=== PATIENT | male | born 1945 | race Caucasian/White ===

== ENCOUNTER → 2017-01-22 | Outpatient (CLI) | payer MEDICARE, OTHER ==
[2017-01-22 08:25] LABS: BASOPHILS % (AUTO) 1 % (0-2); EOSINOPHILS # (AUTO) 0.2 10^3uL; EOSINOPHILS % (AUTO) 3 % (0-4); MEAN CORPUSCULAR HGB CONC 34.6 g/dL (31.0-37.0); MEAN CORPUSCULAR VOLUME 92 FL (80-100); MEAN PLATELET VOLUME 9.4 FL (6.0-9.5); MONOCYTES % (AUTO) 13 % (3-11); NEUTROPHILS # (AUTO) 4.3 X10^3; NEUTROPHILS % (AUTO) 57 % (51-67); PLATELET COUNT 243 10^3uL (150-450); WHITE BLOOD COUNT 7.65 10^3uL (4.0-11.0)
[2017-01-22 08:45] LABS: MEAN CORPUSCULAR HEMOGLOBIN 31.9 PG (26.0-34.0)
[2017-01-22 08:51] LABS: ALBUMIN 3.9 g/dL (3.4-5.0); ANION GAP 15.1 MEQ/L (3-15); CALCULATED IONIZED CALCIUM 4.4 mg/dL (3.8-4.6); TOTAL PROTEIN 6.8 g/dL (6.4-8.5)
[2017-01-22 09:04] LABS: ERYTHROCYTE SEDIMENTATION RT* 7 mm/hr (0-19)
--- NOTE | 2017-01-22 09:14 | Diagnostic Imaging Report ---
INDICATION: Dyspnea. TECHNIQUE: PA and lateral views of the chest were obtained at 0848 hours. COMPARISON: 05/01/2016. FINDINGS: The heart is normal in size. The aorta is tortuous. The lungs are clear except for a calcified granuloma in the right base. There is no pneumothorax or pleural fluid. There is hyperinflation, compatible with COPD. IMPRESSION: COPD changes with hyperinflation. No focal infiltrate or pleural fluid. A calcified granuloma in the right lung base is stable. Dictated by: Dictated on workstation # [id number]
== END ==
LOC: LAB 07:37
PROVIDERS: ATTEND Family Medicine
DX: R06.00 Dyspnea, unspecified (principal); I49.8 Other specified cardiac arrhythmias; R79.89 Other specified abnormal findings of blood chemistry; E78.2 Mixed hyperlipidemia; D50.0 Iron deficiency anemia secondary to blood loss (chronic); N40.1 Benign prostatic hyperplasia with lower urinary tract symptoms; E03.4 Atrophy of thyroid (acquired); M81.0 Age-related osteoporosis without current pathological fracture; A69.20 Lyme disease, unspecified; J44.9 Chronic obstructive pulmonary disease, unspecified; Z12.5 Encounter for screening for malignant neoplasm of prostate
CPT/HCPCS: 36415; 71020; 80053; 80061; 82306; 84436; 84443; 85025; 85652; 86140; 86618; 93005; G0103; 84153